=== PATIENT | female | born 1970 | race African-American/Black ===

== ENCOUNTER 2022-01-27 09:42 | Emergency (ER) | payer OTHER ==
[2022-01-27 12:33] LABS: ESTIMATED GFR 89 mL/min (>60)
[2022-01-27] MEDS ORDERED: Aspirin 81 MG Tab.Chew PO ONE (13:18)
[2022-01-27] MEDS ORDERED: Sodium Chloride 0.9% 10 ML Syringe FLUSH PRN (13:44)
[2022-01-27] MEDS ORDERED: Heparin Sodium 5,000 Units/ML Vial IVPUSH ONE (15:43)
[2022-01-27] MEDS ORDERED: Heparin Sodium/D5W 25,000 UNITS/500 ML BAG IV SCH (15:45)
== END 2022-01-27 18:53 ==
LOC: JD.ED 09:42
DX: I21.4 Non-ST elevation (NSTEMI) myocardial infarction (principal); Z88.6 Allergy status to analgesic agent; Z20.822 Contact with and (suspected) exposure to COVID-19
CPT/HCPCS: 36415; 71045; 80053; 83735; 84443; 84484; 85025; 85379; 86140; 87635; 93005; 96365; 99285; A9270; J1644; J3490; U0002